=== PATIENT | male | born 1985 | race Asian ===

== ENCOUNTER 2022-01-19 09:55 | Emergency (ER) | payer OTHER ==
[~2022-01-19] VITALS: Ht 185.4 cm; Wt 77.1 kg
[2022-01-19 10:02] VITALS: TEMP 97.1
[2022-01-19 11:23] VITALS: BP 98/68
== END 2022-01-19 11:24 | disposition home or self-care (01) ==
LOC: ED 09:55
DX: J45.909 Unspecified asthma, uncomplicated (principal); J06.9 Acute upper respiratory infection, unspecified; Z20.822 Contact with and (suspected) exposure to COVID-19
CPT/HCPCS: 87502; 87635; 87651; 94664; 96372; 99283; J2930; U0003

== ENCOUNTER 2022-08-02 00:08 | Emergency (ER) | payer OTHER ==
[~2022-08-02] VITALS: Ht 185.4 cm; Wt 77.1 kg
[2022-08-02 00:47] VITALS: TEMP 98.9
[2022-08-02 01:50] VITALS: BP 118/76
== END 2022-08-02 01:45 | disposition home or self-care (01) ==
LOC: ED 00:08
DX: T78.49XA Other allergy, initial encounter (principal); X58.XXXA Exposure to other specified factors, initial encounter; Y92.89 Other specified places as the place of occurrence of the external cause
CPT/HCPCS: 96372; 99283; J0171; J2930